=== PATIENT | female | born 1980 | race Caucasian/White ===

== ENCOUNTER 2018-01-20 11:58 | Outpatient (CLI) | payer OTHER | END 2018-01-20 18:04 | disposition home or self-care (01) | LOC: RAD 11:58 | DX: R05 Cough (principal) ==

== ENCOUNTER 2018-01-28 06:00 | Day surgery (SDC) | payer OTHER | END 2018-01-28 17:45 | disposition home or self-care (01) | LOC: CIR.AMB 06:00 | DX: N84.0 Polyp of corpus uteri (principal) ==

== ENCOUNTER 2019-01-18 13:58 | Outpatient (CLI) | payer OTHER | END 2019-01-18 14:07 | disposition home or self-care (01) | LOC: RAD 501 13:58 | DX: M54.2 Cervicalgia (principal); M25.512 Pain in left shoulder ==

== ENCOUNTER 2019-02-10 09:08 | Outpatient (CLI) | payer OTHER | END 2019-02-10 09:09 | disposition home or self-care (01) | LOC: SONOGRAMA 09:08 → MAMO-SONO 11:45 | DX: N20.0 Calculus of kidney (principal) ==

== ENCOUNTER → 2020-04-17 | Outpatient (CLI) | payer OTHER | END | disposition home or self-care (01) | LOC: MAMO-SONO 14:16 → SCREENING 14:16 | PROVIDERS: ATTEND Internal Medicine | DX: Z12.31 Encounter for screening mammogram for malignant neoplasm of breast (principal); E03.8 Other specified hypothyroidism; I48.91 Unspecified atrial fibrillation; Z01.810 Encounter for preprocedural cardiovascular examination; M54.5 Low back pain ==

== ENCOUNTER 2021-10-24 08:00 | Outpatient (CLI) | payer OTHER | END 2021-10-24 08:30 | disposition home or self-care (01) | LOC: PPH VACUNA 08:00 | PROVIDERS: ATTEND Emergency Medicine Pediatric Emergency Medicine | DX: Z23 Encounter for immunization (principal) ==

== ENCOUNTER 2022-08-21 12:37 | Outpatient (CLI) | payer OTHER | END 2022-08-21 12:46 | disposition home or self-care (01) | LOC: RAD 12:37 | PROVIDERS: ATTEND Internal Medicine Pulmonary Disease | DX: J45.41 Moderate persistent asthma with (acute) exacerbation (principal); R05.3 Chronic cough ==